=== PATIENT | male | born 1965 | race Caucasian/White ===

== ENCOUNTER 2020-10-26 16:15 | Inpatient (IN) | payer OTHER, SELFPAY ==
--- NOTE | ~2020-10-26 | CT_ITS ---
EXAMINATION: CT HEAD WITHOUT CONTRAST CLINICAL INFORMATION: Altered mental status. COMPARISON: Brain MRI dated 09/09/2008. TECHNIQUE: Contiguous axial imaging was performed from the skull base to vertex without intravenous administration of contrast. This CT examination was performed using dose optimization techniques as appropriate, variously including the following: *Automated exposure control *Adjustment of mA and/or kV according to patient size (this includes techniques or standardized protocols for targeted exams where dose is matched to indication/reason for exam; i.e. extremities or head) *Use of iterative reconstruction technique DLP: 795 mGy-cm FINDINGS: There is no evidence of acute intracranial hemorrhage or territorial infarction. No abnormal mass effect or midline shift is seen. Mcclellan to white matter differentiation is well preserved. No extra-axial fluid collections are identified. The ventricles are normal in size. There is no abnormal attenuation within the brain parenchyma. The osseous structures and soft tissues are normal. The mastoid air cells are well aerated. Small retention cyst in the maxillary sinuses with mild ethmoid sinus mucosal thickening. CT/CT head/brain wo con IMPRESSION: No acute intracranial pathology.
[2020-10-26 16:17] VITALS: BP 176/106; PULSE 100; RESP 14; TEMP 36.4; O2SAT 100; BMI 28.2
--- NOTE | 2020-10-26 17:03 | PC.NURSE ---
1:1 observation intiated at triage for safety
--- NOTE | 2020-10-26 17:16 | PC.NURSE ---
Pt transferred from waiting room to ED Pod , currently completing changeover.
--- NOTE | 2020-10-26 17:21 | PC.NURSE ---
Pt's sister notified this technical publications writer of patient just called her and reported pt has been having insomnia and has been noted to be regularly standing in the dark in the middle of the night staring at nothing. reports pt with bizzare behavior at home.
--- NOTE | 2020-10-26 17:26 | PC.NURSE ---
Pt alert, affect even, reports increased depression but denies SI. States he is familiar w/ the pod- pt briefly oriented to pod and to crisis process. Pt reports he stopped taking medications x2 days- stated he had some somatic discomfort such as dry mouth which triggered the decision.
--- NOTE | 2020-10-26 17:46 | ED.PSYCH ---
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 Over the past several days he has been more withdrawn not participating in any ADLs and has not showed up to work. He has a history of depression states he is on Cymbalta he has been taking this sister is concerned that he has been sitting there and staring and not talking much. Patient states he feels down and depressed and denies any suicidal/homicidal ideation. Denies any illicit substance use. Sister's concerned that there is strong history of bipolar disorder in the family with similar presentation. No specific recent triggers MD complaint: feels depressed Onset (ago): day(s) Duration: constant History of same: Yes Relieving factors: none Exacerbating factors: none Associated psychiatric symptoms: none Treatments prior to arrival: none Related Data Home Medications Medication Instructions Recorded Confirmed Cymbalta 60 10/26/20 losartan 1 tab PO DAILY 10/26/20 10/26/20 pantoprazole 1 tab PO DAILY 10/26/20 10/26/20 Allergies Allergy/AdvReac Type Severity Reaction Status Date / Time No Known Allergies Allergy Verified 10/26/20 16:25 Review of Systems Review of Systems: Constitutional: No Weight loss, No Fever, No Chills, No Night Sweats, No Fatigue, No Malaise ENT/Mouth: No Hearing loss, No Ear Pain, No Nasal Congestion, No Sinus Pain, No Hoarseness, No sore throat, No Rhinorrhea, No Swallowing Difficulty Eyes: No Eye Pain, No Swelling, No Redness, No Foreign Body, No Discharge, No Vision Changes Cardiovascular: No Chest Pain, No SOB, No Dyspnea on Exertion, No Orthopnea, No Edema, No Palpitations Respiratory: No Cough, No Sputum, No Wheezing, No Smoke Exposure, No Dyspnea Gastrointestinal: No Nausea, No Vomiting, No Diarrhea, No Constipation, No abdominal Pain, No Hematochezia, No Melena Genitourinary: No Dysuria, No Urinary Frequency, No Hematuria, No Urinary Incontinence, No Urgency, No Flank Pain, No Urinary Flow Changes, No Hesitancy Musculoskeletal: No joint pain, No Myalgias, No Joint Swelling Skin: No Skin Lesions, No rash Neuro: No Weakness, No Numbness, No Paresthesias, No Loss of Consciousness, No Dizziness, No Headache Psych: No Anxiety/Panic, positive Depression, No SI/HI/AH/VH, No Social Issues Heme/Lymph: No Bruising, No Bleeding,No Lymphadenopathy Endocrine: No Polyuria, No Polydipsia, No Temperature Intolerance Yes all other systems are reviewed and are negative [facility] Past Medical History Medical History (Updated 10/26/20 @ 21:20 by Gigi Ram NP) Appendicitis Depression GERD (gastroesophageal reflux disease) History of nephrectomy, unilateral HTN (hypertension) Social History Social History Advance Directives: No Advance Directives Information Provided: Yes Physical Exam Vital Signs: Vital Signs: Last Vital Signs Temp 97.5 F 10/26/20 16:17 Pulse 100 10/26/20 16:17 Resp 20 10/26/20 18:00 BP 176/106 H 10/26/20 16:17 Pulse Ox 100 10/26/20 16:17 Body Mass Index 28.2 Reviewed Const: General: cooperative; No acute distress or intoxicated appearing Nutritional Appearance: average body habitus Orientation/consciousness: patient oriented x3 HENMT: Head: Yes normal to inspection Ears: hearing grossly normal bilaterally Eyes: General: appearance normal, both eyes and all related structures Visual Thurston: normal visual thurston by confrontation Neck: Neck: Yes normal visual inspection, No positive Brudzinski's sign, No positive Kernig's sign and No tender Thyroid: Thyroid normal Chest: Chest palpation & inspection: normal inspection of the chest Resp: Effort & Inspection: normal respiratory effort Auscultation: clear to auscultation bilaterally Cardio: Jugular venous distension: no JVD Rhythm: regular rhythm Heart sounds: S1 normal heart sound present and S2 normal heart sound present GI: Inspection: Yes normal to inspection Percussion: Yes normal to percussion Auscultation: normal bowel sounds : General: Yes no CVA tenderness Back/Spine/Pelvis: Back: no CVA tenderness Skin: General skin exam: no rashes or lesions noted Neuro: General: patient oriented x3 Extrem: General: Yes normal to inspection Psych: Other: Flat/depressed affect Appearance: well kempt Course Course Course Narrative: Offers no medical complaints. Medical screening labs and care team evaluation. Plan reviewed with patient as well as sister Jovita who is present. Agreeable. Reevaluation(s) Reevaluation #1: Sign-out this time pending care team evaluation there in the room with the patient evaluating him right now. Sign into night team. MDM - Psych Lab Data Result diagrams: 10/26/20 17:55 10/26/20 17:55 Labs: Lab Results 10/26/20 10/26/20 10/26/20 Range/Units 17:55 17:55 17:55 WBC 8.7 (4.8-10.8) X10*3/uL RBC 5.00 (4.60-5.80) X10*6/uL Hgb 14.7 (14.0-18.0) g/dl Hct 44.5 (42-52) % MCV 89.0 (80-98) fL MCH 29.4 (27.0-33.0) pg MCHC 33.0 (31.0-36.0) g/dl RDW 12.1 (11.0-16.0) % Plt Count 265 (160-400) X10*3/uL MPV 10.4 (9.4-12.4) fL Immature Gran % (Auto) 0.3 (0.0-0.4) % Neut % (Auto) 73.7 H (45-73) % Lymph % (Auto) 15.9 L (20-40) % [place] % (Auto) 7.8 (2-11) % Eos % (Auto) 1.6 (0-4) % Baso % (Auto) 0.7 (0-2) % Lymph # (Auto) 1.4 (1.2-4.9) X10*3/uL [place] # (Auto) 0.7 (0.1-1.2) X10*3/uL Eos # (Auto) 0.1 (0.0-0.4) X10*3/uL Baso # (Auto) 0.1 (0.0-0.2) X10*3/uL Abs Immat Gran (auto) 0.03 (0.00-0.03) X10*3/uL Absolute Neuts (auto) 6.4 (2.0-8.3) X10*3/uL Absolute Nucleated RBC 0.000 (0.0-0.012) X10*3/uL Nucleated RBC % (auto) 0.0 (0.0-0.2) /100WBC Sodium 136 (135-145) mmol/L Potassium 5.0 (3.3-5.1) mmol/L Chloride 100 (96-108) mmol/L Carbon Dioxide 27 (22-29) mmol/L Anion Gap 14 (12-20) BUN 16 (9-16) mg/dL Creatinine 1.28 (0.5-1.4) mg/dL Estim Creat Clear Calc 64.5 Estimated GFR 58 Random Glucose 95 (60-115) mg/dL Calcium 9.6 (8.4-10.2) mg/dL Total Bilirubin 0.7 (0.0-1.0) mg/dL AST 17 (5-37) U/L ALT 19 (0-40) U/L Alkaline Phosphatase 63 (39-117) U/L Total Protein 7.9 (6.5-8.0) g/dL Albumin 4.7 (3.5-5.0) g/dL Salicylates < 5.0 L (15-30) mg/dL Acetaminophen < 1 (<30) mcg/mL Ethyl Alcohol < 10 mg/dL COVID-19 (CONG) (Negative) COVID-19 Clin Com 10/26/20 Range/Units 18:08 WBC (4.8-10.8) X10*3/uL RBC (4.60-5.80) X10*6/uL Hgb (14.0-18.0) g/dl Hct (42-52) % MCV (80-98) fL MCH (27.0-33.0) pg MCHC (31.0-36.0) g/dl RDW (11.0-16.0) % Plt Count (160-400) X10*3/uL MPV (9.4-12.4) fL Immature Gran % (Auto) (0.0-0.4) % Neut % (Auto) (45-73) % Lymph % (Auto) (20-40) % [place] % (Auto) (2-11) % Eos % (Auto) (0-4) % Baso % (Auto) (0-2) % Lymph # (Auto) (1.2-4.9) X10*3/uL [place] # (Auto) (0.1-1.2) X10*3/uL Eos # (Auto) (0.0-0.4) X10*3/uL Baso # (Auto) (0.0-0.2) X10*3/uL Abs Immat Gran (auto) (0.00-0.03) X10*3/uL Absolute Neuts (auto) (2.0-8.3) X10*3/uL Absolute Nucleated RBC (0.0-0.012) X10*3/uL Nucleated RBC % (auto) (0.0-0.2) /100WBC Sodium (135-145) mmol/L Potassium (3.3-5.1) mmol/L Chloride (96-108) mmol/L Carbon Dioxide (22-29) mmol/L Anion Gap (12-20) BUN (9-16) mg/dL Creatinine (0.5-1.4) mg/dL Estim Creat Clear Calc Estimated GFR Random Glucose (60-115) mg/dL Calcium (8.4-10.2) mg/dL Total Bilirubin (0.0-1.0) mg/dL AST (5-37) U/L ALT (0-40) U/L Alkaline Phosphatase (39-117) U/L Total Protein (6.5-8.0) g/dL Albumin (3.5-5.0) g/dL Salicylates (15-30) mg/dL Acetaminophen (<30) mcg/mL Ethyl Alcohol mg/dL COVID-19 (CONG) Negative (Negative) COVID-19 Clin Com See Note Discharge Plan Discharge Clinical Impression: Depression Prescriptions: No Action pantoprazole 40 mg tablet,delayed release (DR/EC) 1 tab PO DAILY RF: 0 losartan 100 mg tablet 1 tab PO DAILY RF: 0 Cymbalta 60 RF: 0
[2020-10-26 18:00] VITALS: RESP 20
[2020-10-26 18:03] LABS: MANUAL DIFF FLAG NO
[2020-10-26 18:05] LABS: Basophils Absolute Auto 0.1 X10*3/uL (0.0-0.2); Basophils Percent Auto 0.7 % (0-2); Eosinophils Absolute Auto 0.1 X10*3/uL (0.0-0.4); Eosinophils Percent Auto 1.6 % (0-4); Hematocrit 44.5 % (42-52); Hemoglobin 14.7 g/dl (14.0-18.0); Imm Gran Abs Auto 0.03 X10*3/uL (0.00-0.03); Imm Gran Pct Auto 0.3 % (0.0-0.4); Lymphocytes Absolute Auto 1.4 X10*3/uL (1.2-4.9); Lymphocytes Percent Auto 15.9 % (20-40); Mean Corpuscular Hemoglobin 29.4 pg (27.0-33.0); Mean Platelet Volume 10.4 fL (9.4-12.4); Monocytes Absolute Auto 0.7 X10*3/uL (0.1-1.2); Monocytes Percent Auto 7.8 % (2-11); Neutrophils Absolute Auto 6.4 X10*3/uL (2.0-8.3); Neutrophils Percent Auto 73.7 % (45-73); Platelet Count 265 X10*3/uL (160-400); Red Cell Distribution Width 12.1 % (11.0-16.0); White Blood Count 8.7 X10*3/uL (4.8-10.8)
--- NOTE | 2020-10-26 18:11 | PC.NURSE ---
Sister in w/ pt; care team called to notify of pt arrival.
[2020-10-26 18:29] LABS: COVID-19 Test Negative (Negative)
[2020-10-26 18:35] LABS: Ethanol < 10 mg/dL
[2020-10-26 18:37] LABS: Acetaminophen LAB < 1 mcg/mL (<30); Alanine Aminotransferase 19 U/L (0-40); Albumin Level 4.7 g/dL (3.5-5.0); Alkaline Phosphatase 63 U/L (39-117); Anion Gap 14 (12-20); Aspartate Amino Transferase 17 U/L (5-37); Bilirubin Total 0.7 mg/dL (0.0-1.0); Blood Urea Nitrogen 16 mg/dL (9-16); Calcium 9.6 mg/dL (8.4-10.2); Carbon Dioxide 27 mmol/L (22-29); Chloride 100 mmol/L (96-108); Creatinine Clr Calc Pharmacy 64.5; Estimated Glomerular Filt Rate 58; Glucose Random 95 mg/dL (60-115); Salicylate < 5.0 mg/dL (15-30); Sodium 136 mmol/L (135-145); Total Protein 7.9 g/dL (6.5-8.0)
--- NOTE | 2020-10-26 19:20 | PC.NURSE ---
Report received. PT is sitting in his room, visiting with his sister. Calm and cooperative. PT is waiting to be seen by CARE team.
[2020-10-26 21:48] VITALS: BP 166/116; PULSE 102
--- NOTE | 2020-10-26 22:17 | PC.NURSE ---
This nurse requested that PT meds be ordered by provider (med rec was completed by another nurse prior to the start of this nurse's shift). Prior to removing ordered meds, this nurse went to confirm the meds with the PT and discovered discrepancies with the meds the PT normally takes at home. This nurse called [facility] pharmacy to confirm meds but pharmacists stated that some meds were not picked up at [facility] and others were . Provider made aware and stopped the med order. This nurse then called the PT's at home to confirm the labels on the home medications. The verified all of the meds that the PT had stated, but one of the meds (losartan) was beyond the length of the prescription on the bottle and another (pantoprazole) was delivered through the mail. Provider made aware. Recommendation for pharmacy consult to be done for this PT to determine correct meds.
--- NOTE | 2020-10-26 22:51 | PC.NURSE ---
pt refused p.o. ativan, encouraged pt to take to aid in sleep. pt has a delayed verbal response. pt standing against wall, would not walk over to me.
--- NOTE | 2020-10-27 01:11 | PC.NURSE ---
This nurse spoke with the PT's daughter on the phone after she spoke to her father. The daughter stated that her father's behavior and speech is very uncharacteristic. Daughter stated, My father is usually very talkative and outgoing . PT is currently sitting on the couch in the common area, where he has been sitting quietly for over an hour. PT is refusing medications and CT scan. Provider came to speak with the PT, but the PT was unable to respond to any questions or requests.
[2020-10-27 01:25] VITALS: BP 155/100; PULSE 105; RESP 18; TEMP 36.2; O2SAT 99
--- NOTE | 2020-10-27 01:45 | PC.NURSE ---
Thelma Oneal (daughter) - [phone]
--- NOTE | 2020-10-27 03:11 | PC.NURSE ---
This nurse called the PT's daughter in order to persuade the PT to have CT scan completed. PT eventually agreed to the scan, was assisted into a wheelchair x2 nurses, and transported to the CT scan room. Once assisted to the exam table x2 nurses, the PT laid down flat with direction. As everyone was walking out of the room, the PT set up on the table and said, No . PT was instructed on the procedure multiple times but continued to refuse to lay flat during the scan. CT scan was not completed. PT was then brought back to pod where he refused to be brought into his room in the wheelchair. PT needed to be assisted out of the wheelchair by this nurse and two techs in the pod. PT is currently sitting up straight on the couch in the common area.
[2020-10-27 03:59] VITALS: BP 149/95; PULSE 101; RESP 16; O2SAT 100
--- NOTE | 2020-10-27 07:00 | PC.NURSE ---
PT has not slept the entire night. Sitting on the couch in the common area staring at the screen for the past 5 hours. PT is not responding to questions.
--- NOTE | 2020-10-27 07:09 | PC.NURSE ---
Report received. PT currently sitting in common area, daughter in to visit. PT offers minimal verbal responses, nods his head yes when asked if he is ok. PT continues to decline CT scan.
--- NOTE | 2020-10-27 07:47 | PC.NURSE ---
PT initially agreed to CT scan, needed multiple staff assistance to sit in wheel chair. Once in CT scan PT declined, continues to be non-verbal with staff. Provider aware. Provider in to speak with PT, pt continues to not respond, shakes head occasionally. PT moved to room 6, report given to RN.
[2020-10-27 07:49] VITALS: BP 195/98; PULSE 116; RESP 20; TEMP 36.9; O2SAT 100
[2020-10-27] MEDS: LORazepam 2 MG/ML VIAL 1 MG IM (08:00)
--- NOTE | 2020-10-27 08:00 | PC.NURSE ---
pt came to ED 6 from behavioral health pod after displaying bizarre behavior at home for 2 days. upon initial assessment, pt appears catatonic and is unable to provide name, date of or his location. arousable to verbal stimuli and makes some eye contact when prompted but does not speak. visible sweat on forehead. respiratory effort is unlabored and rate is even. pt does not voluntarily move his arms to assist this nurse taking vitals. when attempting to medicate patient, he becomes agitated and moves away from needle requiring his daughter and a tech to hold his arms for safe medication administration. pt unable to state if hes in pain at this time, no grimacing noted. daughter at bedside. aware.
[2020-10-27] MEDS: OLANZapine 10 MG VIAL IM (08:14)
--- NOTE | 2020-10-27 08:55 | PC.NURSE ---
After receiving 1mg IM Ativan and 10mg IM Zyprexa, pt is now alert and oriented x3, able to state name, , location and month. pt is now calm and cooperative. eye contact and verbal response is now appropriate for setting. pt able to speak in full sentences and make needs known. pt requesting water for dry mouth at this time and is able to drink water without issues. lung sounds clear bilaterally in all thurston, respirations even and unlabored. heart rate and sounds normal. pt now moving arms voluntarily and assists nurse when having vitals taken. pt denies pain at this time and states he is feeling better after receiving medications. daughter still at bedside. call [place] [facility] in reach. aware.
[2020-10-27 08:58] VITALS: BP 146/94; PULSE 107; RESP 16; O2SAT 100
--- NOTE | 2020-10-27 09:37 | PC.NURSE ---
0915 clonazepam held because pt was medicated earlier with 1mg IM lorazepam. mlp (Mary Anne) aware
[2020-10-27] MEDS: DULoxetine HCl 60 MG CAPSULE.DR PO (09:41)
[2020-10-27 10:50] VITALS: BP 168/82; PULSE 100; RESP 16; O2SAT 99
[2020-10-27 11:04] LABS: Amphetamine Screen Urine Not Detected (Not Detect); Barbiturates, Urine Not Detected (Not Detect); Benzodiazepines Screen Urine Not Detected (Not Detect); Cannabinoid Screen Urine Not Detected (Not Detect); Cocaine Screen Urine Not Detected (Not Detect); Opiate Screen Urine Not Detected (Not Detect); Phencyclidine Screen Urine Not Detected (Not Detect)
--- NOTE | 2020-10-27 11:59 | PC.NURSE ---
Report received. PT ambulated to pod with steady gait, calm and cooperative, pt asking about lunch and plan of care. Plan of care explained.
--- NOTE | 2020-10-27 16:36 | PC.NURSE ---
Che Durant (Pt's sister) [phone]
[2020-10-27 18:02] VITALS: BP 118/67; PULSE 114; RESP 20; TEMP 36.2; O2SAT 99
--- NOTE | 2020-10-27 20:08 | PC.NURSE ---
Report received. PT is resting in bed. Just finished eating all of his dinner. PT is inpatient bed search.
[2020-10-27] MEDS: clonazePAM 0.5 MG TABLET PO (21:19)
--- NOTE | 2020-10-27 21:58 | P.CNPS_ITS ---
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 Over the past several days he has been more withdrawn not p articipating in any ADLs and has not showed up to work. He has a history of depression states he is on Cymbalta he has been taking this sister is concerned that he has been sitting there and staring and not talking much. Patient states he feels down and depressed and denies any suicidal/homicidal ideation. Denies any illicit substance use. Sister's concerned that there is strong history of bipolar disorder in the family with similar presentation. Individual reports that he has been under a lot of stress over the time of the pandemic and now with schools starting to be in-person. He has noticed that he had been more depressed and anxious. He has been suffering from depression for many years and had been stable on duloxetine, prescribed by his PCP. He had the second of his COVID vaccine and subsequently felt very weird, mildly confused and congested. He also forgot to take his cymbalta. Upon presentation to the ER he was confused and agitated. He was entirely uncooperative and needed im medication. Subsequent to this he has been clearing and when interviewed today was clear and entirely cooperative. He was able to give a good account of himself. He denied SI Past Psychiatric History: No IP admissions Treated by his PCP for depression Medical Evaluation Reviewed: Yes Personal & Social History: with a family. Teacher by profession Review of Systems Review of Systems Yes all other systems are reviewed and are negative [facility] Medical History Appendicitis Depression GERD (gastroesophageal reflux disease) History of nephrectomy, unilateral HTN (hypertension) Substance History: denies Diagnostics Vital Signs (24Hr): Vital Signs - 24 hr 10/27/20 01:25 10/27/20 03:59 10/27/20 07:49 Temperature 97.2 F 98.4 F Pulse Rate 105 H 101 H 116 H Respiratory Rate 18 16 20 Blood Pressure 155/100 H 149/95 H 195/98 H Pulse Oximetry 99 100 100 10/27/20 08:58 10/27/20 10:50 10/27/20 18:02 Temperature 97.1 F Pulse Rate 107 H 100 114 H Respiratory Rate 16 16 20 Blood Pressure 146/94 H 168/82 H 118/67 Pulse Oximetry 100 99 99 Body Mass Index 28.2 Labs Results: 10/26/20 17:55 10/26/20 17:55 Labs: Laboratory Results - last 48 hr 10/26/20 10/26/20 10/26/20 17:55 17:55 17:55 WBC 8.7 RBC 5.00 Hgb 14.7 Hct 44.5 MCV 89.0 MCH 29.4 MCHC 33.0 RDW 12.1 Plt Count 265 MPV 10.4 Immature Gran % (Auto) 0.3 Neut % (Auto) 73.7 H Lymph % (Auto) 15.9 L [place] % (Auto) 7.8 Eos % (Auto) 1.6 Baso % (Auto) 0.7 Lymph # (Auto) 1.4 [place] # (Auto) 0.7 Eos # (Auto) 0.1 Baso # (Auto) 0.1 Abs Immat Gran (auto) 0.03 Absolute Neuts (auto) 6.4 Absolute Nucleated RBC 0.000 Nucleated RBC % (auto) 0.0 Sodium 136 Potassium 5.0 Chloride 100 Carbon Dioxide 27 Anion Gap 14 BUN 16 Creatinine 1.28 Estim Creat Clear Calc 64.5 Estimated GFR 58 Random Glucose 95 Calcium 9.6 Total Bilirubin 0.7 AST 17 ALT 19 Alkaline Phosphatase 63 Total Protein 7.9 Albumin 4.7 Salicylates < 5.0 L Urine Opiates Screen Acetaminophen < 1 Ur Barbiturates Screen Ur Phencyclidine Scrn Ur Amphetamines Screen U Benzodiazepines Scrn Urine Cocaine Screen U Marijuana (THC) Screen Ethyl Alcohol < 10 COVID-19 (CONG) COVID-19 Clin Com 10/26/20 10/27/20 18:08 10:31 WBC RBC Hgb Hct MCV MCH MCHC RDW Plt Count MPV Immature Gran % (Auto) Neut % (Auto) Lymph % (Auto) [place] % (Auto) Eos % (Auto) Baso % (Auto) Lymph # (Auto) [place] # (Auto) Eos # (Auto) Baso # (Auto) Abs Immat Gran (auto) Absolute Neuts (auto) Absolute Nucleated RBC Nucleated RBC % (auto) Sodium Potassium Chloride Carbon Dioxide Anion Gap BUN Creatinine Estim Creat Clear Calc Estimated GFR Random Glucose Calcium Total Bilirubin AST ALT Alkaline Phosphatase Total Protein Albumin Salicylates Urine Opiates Screen Not Detected Acetaminophen Ur Barbiturates Screen Not Detected Ur Phencyclidine Scrn Not Detected Ur Amphetamines Screen Not Detected U Benzodiazepines Scrn Not Detected Urine Cocaine Screen Not Detected U Marijuana (THC) Screen Not Detected Ethyl Alcohol COVID-19 (CONG) Negative COVID-19 Clin Com See Note Imaging Radiology Impressions: ITS Impressions Head CT 10/27/20 00:30 IMPRESSION: No acute intracranial pathology. Mental Status Exam Mental Status Exam Patient Appearance: Well Grooomed Patient Orientation: Person, Place, Time and Situation Level of Consciousness: Awake Patient Behavior: Appropriate Mood Description: Calm Affect Description: Calm Ability to Follow Directions: Excellent Speech Pattern: Clear Hallucinations: None Delusions: Not Present Thought Process: Intact Thought Content: positive for Intact, positive for Circumstantial, negative for Suicidal Ideation and negative for Homicidal Ideation Depressive Symptoms: Increased Anxiety, Diff. Making Decisions and Increased Fatigue Judgement: Good Medications Medications Current Medications Generic Name Dose Route Start Last Admin Trade Name Freq PRN Reason Stop Dose Admin Clonazepam 0.5 mg 10/27/20 09:15 10/27/20 21:19 Clonazepam 0.5 Mg Tablet PO 0.5 mg BID CLAUDY Administration Duloxetine HCl 90 mg 10/28/20 09:00 Duloxetine Hcl 30 Mg Capsule. PO DAILY CLAUDY Allergies Allergies Allergy/AdvReac Type Severity Reaction Status Date / Time No Known Allergies Allergy Verified 10/26/20 16:25 Assessment & Plan Assessment & Plan (1) Depression: Qualifiers: Depression Type: major depressive disorder Major depression recurrence: recurrent Active/Remission status: currently active Major depression episode severity: moderate Qualified Code(s): F33.1 - Major depressive disorder, recurrent, moderate Status: Acute Code(s): F32.9 - Major depressive disorder, single episode, unspecified Recommendations: Acute agitation which may be a result of COVID vaccination, cymbalta withdrawal on top of extreme life stresses. He had been more depressed in recent weeks before this happened. He might benefit from an increase in cymbalta to address breakthrough depression. He did not appear to be at acute risk or psychotic at the time of this evaluation Greater than 50% of the session was spent on counseling and/or coordination of care Patient educated on: diagnosis Informed Consent: understands
[2020-10-28 06:00] VITALS: BP 168/78; PULSE 114; RESP 20; TEMP 36.3; O2SAT 99
--- NOTE | 2020-10-28 07:47 | PC.NURSE ---
Pt report received from Ronn AMAYA, pt resting quietly at this time. Bedsearch cont.
[2020-10-28] MEDS: DULoxetine HCl 30 MG CAPSULE.DR 90 MG PO (08:08)
[2020-10-28] MEDS: clonazePAM 0.5 MG TABLET PO ×2 (08:08→21:13)
[2020-10-28 09:49] VITALS: BP 119/89; PULSE 86; RESP 16; TEMP 37; O2SAT 100
--- NOTE | 2020-10-28 15:03 | PC.NURSE ---
Report recieved. PT currently sitting in his room, denies complaints, calm and cooperative. PT is inpatient bedsearch.
[2020-10-28 17:41] VITALS: BP 128/93; PULSE 93; RESP 18; TEMP 36.2; O2SAT 100
--- NOTE | 2020-10-28 19:45 | PC.NURSE ---
Report received. PT is talking on the phone with his sister. Calm and cooperative. PT is inpatient bed search.
[2020-10-29 06:14] VITALS: BP 149/82; PULSE 100; RESP 16; TEMP 36.7; O2SAT 96
--- NOTE | 2020-10-29 07:34 | PC.NURSE ---
Report received from MONIQUE Brody. Pt resting, resp unlabored.
--- NOTE | 2020-10-29 09:27 | PC.NURSE ---
Pt evaluated by psychiatry
[2020-10-29 09:36] VITALS: BP 143/102; PULSE 95; TEMP 36.4; O2SAT 98
[2020-10-29] MEDS: clonazePAM 0.5 MG TABLET PO ×2 (09:37→20:33)
[2020-10-29] MEDS: DULoxetine HCl 30 MG CAPSULE.DR 90 MG PO (09:37)
--- NOTE | 2020-10-29 09:44 | P.CNPS_ITS ---
History of Present Illness Date of Service: 10/29/20 Chief Complaint: Depression Reason for Consult: Depression, rule out bipolar disorder Requesting physician: Gigi Ram Discussed with referring provider: Yes (POD team discussion) Sources of Information: patient interviewed and chart reviewed HPI Narrative: Pt seen in POD. Seen by Dr. Scott on 10/28/20. Reports depressive symptoms, difficulty talking, awaiting admission. Denies longstanding psychiatric history. Reports duloxetine initiated by PCP for sx of depression, anxiety. Pt appears to be thought blocking-difficulty expressing himself, stops speaking mid sentence. CAT Head on 10/27/20 is negative. Past Psychiatric History: No IP admissions Treated by his PCP for depression Medical Evaluation Reviewed: Yes Review of Systems Review of Systems Yes all other systems are reviewed and are negative (denies) Gastrointestinal: Reports other (hx reflux) [facility] Medical History Appendicitis Depression GERD (gastroesophageal reflux disease) History of nephrectomy, unilateral HTN (hypertension) Diagnostics Vital Signs (24Hr): Vital Signs - 24 hr 10/28/20 09:49 10/28/20 17:41 10/29/20 06:14 Temperature 98.6 F 97.1 F 98.0 F Pulse Rate 86 93 100 Respiratory Rate 16 18 16 Blood Pressure 119/89 128/93 H 149/82 H Pulse Oximetry 100 100 96 10/29/20 09:36 Temperature 97.6 F Pulse Rate 95 Respiratory Rate Blood Pressure 143/102 H Pulse Oximetry 98 Body Mass Index 28.2 Labs Results: 10/26/20 17:55 10/26/20 17:55 Labs: Laboratory Results - last 48 hr 10/27/20 10:31 Urine Opiates Screen Not Detected Ur Barbiturates Screen Not Detected Ur Phencyclidine Scrn Not Detected Ur Amphetamines Screen Not Detected U Benzodiazepines Scrn Not Detected Urine Cocaine Screen Not Detected U Marijuana (THC) Screen Not Detected Imaging Radiology Impressions: ITS Impressions Head CT 10/27/20 00:30 IMPRESSION: No acute intracranial pathology. Mental Status Exam Mental Status Exam Patient Appearance: Appropriate Patient Orientation: Person and Place Level of Consciousness: Awake and Alert Patient Behavior: Appropriate, Anxious and Good Eye Contact Mood Description: Anxious Affect Description: Anxious Patient Cognition Impaired: Yes Ability to Follow Directions: Fair Speech Pattern: Impoverished, Difficulty Finding Words, Spontaneous Speech, Soft-Spoken, Delayed, Poor Articulation and Long Pauses Memory Description: Intact Hallucinations: None Thought Process: Distracted and Rumination Thought Content: positive for Fielding, positive for Perseveration, positive for Preoccupation, positive for Thought Blocking and positive for Slowed Thinking Depressive Symptoms: Increased Anxiety Judgement: Poor Medications Medications Current Medications Generic Name Dose Route Start Last Admin Trade Name Freq PRN Reason Stop Dose Admin Clonazepam 0.5 mg 10/27/20 09:15 10/29/20 09:37 Clonazepam 0.5 Mg Tablet PO 0.5 mg BID CLAUDY Administration Duloxetine HCl 90 mg 10/28/20 09:00 10/29/20 09:37 Duloxetine Hcl 30 Mg Capsule.Dr PO 90 mg DAILY CLAUDY Administration Allergies Allergies Allergy/AdvReac Type Severity Reaction Status Date / Time No Known Allergies Allergy Verified 10/26/20 16:25 Assessment & Plan Assessment & Plan (1) Depression: Qualifiers: Active/Remission status: currently active Depression Type: major depressive disorder Major depression episode severity: moderate Major depression recurrence: recurrent Qualified Code(s): F33.1 - Major depressive disorder, recurrent, moderate Status: Acute Code(s): F32.9 - Major depressive disorder, single episode, unspecified Recommendations: -Add low dose Olanzapine 2.5 mg bid and 5 mg bid prn to current regime at pt appears to have psychotic symptoms within his depression, thought blocking, which is inhibiting his communication. -TSH, FT4 -Agree with decision for in pt admission. Greater than 50% of the session was spent on counseling and/or coordination of care
[2020-10-29] MEDS: OLANZapine 2.5 MG TABLET PO ×2 (10:43→20:33)
[2020-10-29 11:06] VITALS: BP 145/97; PULSE 107; RESP 20; TEMP 36.3; O2SAT 98
[2020-10-29 11:55] LABS: TSH reflex Free T4 1.33 uIU/mL (0.32-4.0)
--- NOTE | 2020-10-29 12:10 | PC.NURSE ---
Late entry: Pt accepted zyprexa as ordered, educated re: dosage and function. Pt currently resting.
--- NOTE | 2020-10-29 13:34 | PC.NURSE ---
Pt appears increasingly engaged, able to carry a conversion w/ staff without hesitation.
[2020-10-29 14:00] VITALS: RESP 20
--- NOTE | 2020-10-29 15:26 | PC.NURSE ---
Sister in to visit w/ pt. Pt gave permission to speak w/ pt. Pt pleasant, increasingly engaging in conversation, appears and is anxious.
[2020-10-29 15:51] VITALS: BP 120/69; PULSE 97; RESP 20; TEMP 36.4; O2SAT 99
--- NOTE | 2020-10-29 17:17 | PC.NURSE ---
Daughter in to visit pt.
--- NOTE | 2020-10-29 18:29 | PC.NURSE ---
CARE team in w/ pt. Daughter Thelma in to visit pt- will call back tomorrow, would like to be added to health care proxy.
--- NOTE | 2020-10-29 19:59 | PC.NURSE ---
Patient in bed lying, resting quietly, no distress reported, will continue to monitor.
[2020-10-30 06:31] VITALS: BP 127/79; PULSE 96; RESP 17; TEMP 36.7; O2SAT 98
--- NOTE | 2020-10-30 07:18 | PC.NURSE ---
Report received from MONIQUE Cooley. Pt awake, affect constricted; pt states he slept last night, and is planning to rest again. No concerns reported.
[2020-10-30 09:13] VITALS: BP 138/93; PULSE 106; RESP 18; TEMP 36.6; O2SAT 97
[2020-10-30] MEDS: OLANZapine 2.5 MG TABLET PO ×2 (09:35→21:40)
[2020-10-30] MEDS: clonazePAM 0.5 MG TABLET PO ×2 (09:35→21:40)
[2020-10-30] MEDS: Omeprazole 40 MG CAPSULE.DR PO (09:35)
[2020-10-30 09:36] VITALS: BP 138/93; PULSE 106
[2020-10-30] MEDS: Losartan Potassium 50 MG TABLET PO (09:36)
--- NOTE | 2020-10-30 11:09 | PC.NURSE ---
Pt Pt resting in bed, easily awakened. Pt appears more reluctant to accept medications this morning. Reviewed each medication w/ pt, continued education re: medications. Pt able to accept them.
[2020-10-30] MEDS: DULoxetine HCl 30 MG CAPSULE.DR 90 MG PO (12:02)
[2020-10-30 14:00] VITALS: RESP 18
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
--- NOTE | 2020-10-30 16:49 | PC.NURSE ---
Report given to MONIQUE Meadows. Pt to be transferred to , room 506-2.
[2020-10-30 17:25] VITALS: BP 152/96; PULSE 104; RESP 16; O2SAT 99
[2020-10-30 18:00] VITALS: BP 138/84; PULSE 104; RESP 20; TEMP 36.1; O2SAT 99
--- NOTE | 2020-10-30 18:29 | PC.NURSE ---
pt in room, eating dinner, denies any concerns at this time, aware that he will be transferred to .
--- NOTE | 2020-10-30 20:38 | PC.ADMIT ---
Pt is a 54 year old male who [place] [facility] by his sister who drove him here. Upon arrival to the ED pt was unable to respond, was difficult for him to answer questions, observed to be thought blocking and internally preoccupied. 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 Pt sister states he has been off from his baseline for the past two weeks, she states he has been dissociating and staring at the wall for hours. Pt presents to at approx 1930 on a CV status. Pt is Covid negative. UTOX negative, and labs within normal limits. Pt denies current services in the community. Pt denies history of trauma. Pt's sister states that their parnts dying has been very difficult for him and he is worried about her on dialysis and is scared for her. Pt did give his sister a kidney years back. Pt denies SI/HI, AH/VH on admission. Pt contracts for safety. Dr. Jaelyn Obando called for orders and notified of admission. Pt on 5 min checks with unlocked bathroom. Pt was cooperative with the admission and nursing assessment. Pt presents with flat affect and depressed mood, anxious, speech slowed and was hesitant about signing releases, which he decided against. Pt did sign all other admission paperwork. Medication has been verified by the ED. Pt denies pain or discomfort at this time.
[2020-10-31 06:02] VITALS: BP 140/82; PULSE 88; RESP 18; TEMP 36.1; O2SAT 97
[2020-10-31] MEDS: DULoxetine HCl 30 MG CAPSULE.DR 90 MG PO (08:33)
[2020-10-31 08:34] VITALS: BP 145/94; PULSE 92
[2020-10-31] MEDS: Losartan Potassium 50 MG TABLET PO (08:34)
[2020-10-31] MEDS: Omeprazole 40 MG CAPSULE.DR PO (08:34)
[2020-10-31] MEDS: OLANZapine 2.5 MG TABLET PO (08:34)
[2020-10-31] MEDS: clonazePAM 0.5 MG TABLET PO ×2 (08:34→20:57)
[2020-10-31 08:47] LABS: Cholesterol 199 mg/dL; HDL Cholesterol 33 mg/dL; LDL Cholesterol Calculated 127 mg/dl; Triglycerides 196 mg/dL
[2020-10-31 08:52] LABS: Estimated Average Glucose 103 mg/dL; Hemoglobin A1c % 5.2 %
[2020-10-31 16:34] VITALS: BP 130/76; PULSE 90; RESP 18; TEMP 36.2; O2SAT 98
[2020-10-31] MEDS: OLANZapine 5 MG TABLET PO (20:57)
[2020-11-01 06:05] VITALS: BP 110/57; PULSE 86; RESP 18; TEMP 36.6; O2SAT 96
[2020-11-01 07:00] VITALS: BMI 28.5
[2020-11-01 08:20] VITALS: BP 157/101; PULSE 103; RESP 14
[2020-11-01 09:12] VITALS: BP 110/57
[2020-11-01] MEDS: Omeprazole 40 MG CAPSULE.DR PO (09:12)
[2020-11-01] MEDS: Losartan Potassium 50 MG TABLET PO (09:12)
[2020-11-01] MEDS: OLANZapine 5 MG TABLET PO ×2 (09:12→20:18)
[2020-11-01] MEDS: clonazePAM 0.5 MG TABLET PO ×2 (09:12→20:18)
[2020-11-01] MEDS: DULoxetine HCl 30 MG CAPSULE.DR 90 MG PO (09:12)
--- NOTE | 2020-11-01 09:38 | HO.PSYADMNOT ---
HPI Chief Complaint: Severe depression Sources of Information: patient interviewed, chart reviewed and crisis/core team assessment reviewed HPI Subjective Notes: Conditional Voluntary Narrative: Mr. Oneal is a 54 year-old male with hx of MDD. No prior inpatient psychiatric admission. Per crisis report, pt was brought to [facility] ED on 10/28/2020 by and sister as pt has been presenting as withdrawn, minimally verbal, blank stare, not sleeping and stopped going to work 4 days ago. In the ED he was noted to be thought blocking, minimally interactive/verbal. He was started on low dose of Olanzapine in ED. His utox was negative. CT scan did not show acute pathology. On the unit, Mr. Oneal appears slightly more verbal. However, he is not able to provide much details about events leading to this admission. He reports he was not feeling well. When asked if physically or emotionally, he states both. When asked to elaborate, he does not provide much details. He denies VH/AH. He reports poor sleep. He describes mood as depressed. He denies SI/HI. He denies physical pain or unable to describe in what way he did not feel physically well. He does state that he has been feeling tired. Collateral information was gathered from the , who reports pt has been under a lot of stress at work including possibility of losing his job. also reports that they have significant financial stressors at this time. He does not think that he was hearing things that other couldn't hear or seeing things. She does report that he spend most of day staring at wall with limited verbalization. She reports he had poor appetite and poor sleep. She reports she has never seen him like this. Past Psychiatric History: No IP admissions Treated by his PCP for depression Suicide attempts: none Past trials: cymbalta and clonazepam Medical Evaluation Reviewed: Yes [facility] Medical History Appendicitis Depression GERD (gastroesophageal reflux disease) History of nephrectomy, unilateral HTN (hypertension) Family History: sister with depression Social History: pt has two daugther. Second marriage, works as social media job titles for [employer]. Substance History: long hx of cocaine, but not active. Trauma History: none Diagnostics Vital Signs (24Hr): Vital Signs - 24 hr 10/31/20 16:34 11/01/20 06:05 11/01/20 09:12 Temperature 97.1 F 97.8 F Pulse Rate 90 86 Respiratory Rate 18 18 Blood Pressure 130/76 110/57 L 110/57 L Pulse Oximetry 98 96 Body Mass Index 28.2 Labs Results: 10/26/20 17:55 10/26/20 17:55 Labs: Laboratory Results - last 48 hr 10/31/20 10/31/20 07:47 07:47 Estimat Average Glucose 103 Hemoglobin A1c % 5.2 Triglycerides 196 Cholesterol 199 LDL Cholesterol, Calc 127 HDL Cholesterol 33 Imaging Radiology Impressions: ITS Impressions Head CT 10/27/20 00:30 IMPRESSION: No acute intracranial pathology. Meds/Allergies Meds Home Medications Acetaminophen (Acetaminophen 325 Mg Tablet) 650 mg PO Q6H PRN PRN Reason: Headache/Pain Mild Scale (1-3) Al Hydroxide/Mg Hydroxide (Magnesium Hydrox/Alum Hydrox 30 Ml Oral.Susp) 30 ml PO Q6H PRN PRN Reason: Heartburn/Nausea Clonazepam (Clonazepam 0.5 Mg Tablet) 0.5 mg PO BID [facility] Last Admin: 11/01/20 09:12 Dose: 0.5 mg Documented by: Duloxetine HCl (Duloxetine Hcl 30 Mg Capsule.) 90 mg PO DAILY [facility] Last Admin: 11/01/20 09:12 Dose: 90 mg Documented by: Losartan Potassium (Losartan Potassium 50 Mg Tablet) 50 mg PO DAILY [facility]; Protocol Last Admin: 11/01/20 09:12 Dose: 50 mg Documented by: Magnesium Hydroxide (Milk Of Magnesia 30 Ml Oral.Susp) 30 ml PO DAILY PRN PRN Reason: Constipation Olanzapine (Olanzapine 5 Mg Tablet) 5 mg PO BID [facility] Last Admin: 11/01/20 09:12 Dose: 5 mg Documented by: Olanzapine (Olanzapine 5 Mg Tablet) 5 mg PO Q6H PRN PRN Reason: Psychosis/agitation Omeprazole (Omeprazole 40 Mg Capsule.) 40 mg PO DAILY [facility] Last Admin: 11/01/20 09:12 Dose: 40 mg Documented by: Trazodone HCl (Trazodone Hcl 50 Mg Tablet) 50 mg PO BEDTIME PRN PRN Reason: Insomnia Allergies Allergies Allergy/AdvReac Type Severity Reaction Status Date / Time No Known Allergies Allergy Verified 10/26/20 16:25 Mental Status Exam Mental Status Exam Narrative: Appearance: wearing hospital gown, poor hygiene, in NAD Behavior: calm, cooperative Psychomotor: retardation noted Speech: clear, slowed rate/rhythm/volume, minimally spontaneous TP: linear TC: no signs of psychosis, feeling tired Mood: tired Affect:constricted SI:denies HI:denies AH/VH:denies Delusions:no overt delusional content reported Insight/judgment:poor x 2. Memory/cog: alert, impaired secondary to psych symptoms. Assessment & Plan Assessment & Plan (1) MDD (major depressive disorder), recurrent, severe, with psychosis: Status: Acute Code(s): F33.3 - Major depressive disorder, recurrent, severe with psychotic symptoms Assessment and Plan: continue cymbalta increase olanzapine to 5mg po BID. continue clonazepam Reason for continued inpatient stay Substantial Risk for: inability to function
--- NOTE | 2020-11-01 14:10 | HO.PSYCHPN ---
Subjective Subjective Date of Service: 11/01/20 Reason For Visit: Severe depression Subjective Notes: Conditional Voluntary Interim History: Pt appears with brighter affect. Pt reported feeling very depressed, hopeless and lack of sleep. He also reported poor appetite which it is improving. He denies SI/HI. he also denies VH/AH. He reports sleeping better with medications. He does not appear with psychotic features at this time. Medication Compliance: Yes Side effects from medications: No Attending Groups: No Review of Systems Review of Systems Constitutional: No Weight loss, No Fever, No Chills, No Night Sweats, No Fatigue, No Malaise ENT/Mouth: No Hearing loss, No Ear Pain, No Nasal Congestion, No Sinus Pain, No Hoarseness, No sore throat, No Rhinorrhea, No Swallowing Difficulty Eyes: No Eye Pain, No Swelling, No Redness, No Foreign Body, No Discharge, No Vision Changes Cardiovascular: No Chest Pain, No SOB, No Dyspnea on Exertion, No Orthopnea, No Edema, No Palpitations Respiratory: No Cough, No Sputum, No Wheezing, No Smoke Exposure, No Dyspnea Gastrointestinal: No Nausea, No Vomiting, No Diarrhea, No Constipation, No abdominal Pain, No Hematochezia, No Melena Genitourinary: No Dysuria, No Urinary Frequency, No Hematuria, No Urinary Incontinence, No Urgency, No Flank Pain, No Urinary Flow Changes, No Hesitancy Musculoskeletal: No joint pain, No Myalgias, No Joint Swelling Skin: No Skin Lesions, No rash Neuro: No Weakness, No Numbness, No Paresthesias, No Loss of Consciousness, No Dizziness, No Headache Psych: No Anxiety/Panic, positive Depression, No SI/HI/AH/VH, No Social Issues Heme/Lymph: No Bruising, No Bleeding,No Lymphadenopathy Endocrine: No Polyuria, No Polydipsia, No Temperature Intolerance Yes all other systems are reviewed and are negative Gastrointestinal: Reports other (hx reflux) Mental Status Exam Mental Status Exam Narrative: Appearance: wearing hospital gown, poor hygiene, in NAD Behavior: calm, cooperative Psychomotor: retardation noted Speech: clear, slowed rate/rhythm/volume, minimally spontaneous TP: linear TC: no signs of psychosis, feeling tired Mood: tired Affect:constricted SI:denies HI:denies AH/VH:denies Delusions:no overt delusional content reported Insight/judgment:poor x 2. Memory/cog: alert, impaired secondary to psych symptoms. Patient Appearance: Appropriate Patient Orientation: Person and Place Level of Consciousness: Awake and Alert Patient Behavior: Appropriate, Anxious and Good Eye Contact Mood Description: Anxious Affect Description: Anxious Patient Cognition Impaired: Yes Ability to Follow Directions: Fair Speech Pattern: Impoverished, Difficulty Finding Words, Spontaneous Speech, Soft-Spoken, Delayed, Poor Articulation and Long Pauses Memory Description: Intact Diagnostics Vital Signs (24Hr): Vital Signs - 24 hr 10/31/20 16:34 11/01/20 06:05 11/01/20 09:12 Temperature 97.1 F 97.8 F Pulse Rate 90 86 Respiratory Rate 18 18 Blood Pressure 130/76 110/57 L 110/57 L Pulse Oximetry 98 96 Body Mass Index 28.5 Labs Results: 10/26/20 17:55 10/26/20 17:55 Labs: Laboratory Results - last 48 hr 10/31/20 10/31/20 07:47 07:47 Estimat Average Glucose 103 Hemoglobin A1c % 5.2 Triglycerides 196 Cholesterol 199 LDL Cholesterol, Calc 127 HDL Cholesterol 33 Imaging Radiology Impressions: ITS Impressions Head CT 10/27/20 00:30 IMPRESSION: No acute intracranial pathology. Medications Medications Current Medications Generic Name Dose Route Start Last Admin Trade Name Freq PRN Reason Stop Dose Admin Acetaminophen 650 mg 10/30/20 17:29 Acetaminophen 325 Mg Tablet PO Q6H PRN Headache/Pain Mild Scale (1-3) Al Hydroxide/Mg Hydroxide 30 ml 10/30/20 17:29 Magnesium Hydrox/Alum Hydrox 30 Ml Oral.Susp PO Q6H PRN Heartburn/Nausea Clonazepam 0.5 mg 10/27/20 09:15 11/01/20 09:12 Clonazepam 0.5 Mg Tablet PO 0.5 mg BID CLAUDY Administration Duloxetine HCl 90 mg 10/28/20 09:00 11/01/20 09:12 Duloxetine Hcl 30 Mg Capsule.Dr PO 90 mg DAILY CLAUDY Administration Losartan Potassium 50 mg 10/30/20 09:00 11/01/20 09:12 Losartan Potassium 50 Mg Tablet PO 50 mg DAILY CLAUDY Administration Protocol Magnesium Hydroxide 30 ml 10/30/20 17:29 Milk Of Magnesia 30 Ml Oral.Susp PO DAILY PRN Constipation Olanzapine 5 mg 10/31/20 21:00 11/01/20 09:12 Olanzapine 5 Mg Tablet PO 5 mg BID CLAUDY Administration Olanzapine 5 mg 10/31/20 14:24 Olanzapine 5 Mg Tablet PO Q6H PRN Psychosis/agitation Omeprazole 40 mg 10/30/20 09:00 11/01/20 09:12 Omeprazole 40 Mg Capsule.Dr PO 40 mg DAILY CLAUDY Administration Trazodone HCl 50 mg 10/30/20 17:29 Trazodone Hcl 50 Mg Tablet PO BEDTIME PRN Insomnia Allergies Allergies Allergy/AdvReac Type Severity Reaction Status Date / Time No Known Allergies Allergy Verified 10/26/20 16:25 Assessment & Plan Assessment & Plan (1) MDD (major depressive disorder), recurrent, severe, with psychosis: Status: Acute Code(s): F33.3 - Major depressive disorder, recurrent, severe with psychotic symptoms Assessment and Plan: continue cymbalta continue olanzapine to 5mg po BID. continue clonazepam Greater than 50% of the session was spent on counseling and/or coordination of care Reason for contiued inpatient stay Substantial Risk for: inability to function
[2020-11-01 18:00] VITALS: BP 154/89; PULSE 100; TEMP 36.6
[2020-11-02 06:30] VITALS: BP 136/77; PULSE 88; RESP 16; TEMP 36.6; O2SAT 97
[2020-11-02] MEDS: Omeprazole 40 MG CAPSULE.DR PO (08:27)
[2020-11-02] MEDS: clonazePAM 0.5 MG TABLET PO ×2 (08:28→21:14)
[2020-11-02] MEDS: OLANZapine 5 MG TABLET PO ×2 (08:28→21:14)
[2020-11-02] MEDS: DULoxetine HCl 30 MG CAPSULE.DR 90 MG PO (08:28)
[2020-11-02 08:40] VITALS: BP 172/99; PULSE 88
[2020-11-02] MEDS: Losartan Potassium 50 MG TABLET PO (08:40)
--- NOTE | 2020-11-02 12:57 | HO.PSYCHPN ---
Subjective Subjective Date of Service: 11/02/20 Reason For Visit: Severe depression Interim History: Pt reports feeling less depressed. He reports he feels more rested in the morning and sleeping through the night. Pt reports he thinks he was too overwhelmed and anxious with multiple stressors including financial, problems with who does not want her adult daughter from other marriage to visit. He denies SI/HI. He was encouraged to attend groups. He has been mostly in his room. He continues to present with flat affect, although talking more. He does not appear with psychotic features at this time. Review of Systems Review of Systems Constitutional: No Weight loss, No Fever, No Chills, No Night Sweats, No Fatigue, No Malaise ENT/Mouth: No Hearing loss, No Ear Pain, No Nasal Congestion, No Sinus Pain, No Hoarseness, No sore throat, No Rhinorrhea, No Swallowing Difficulty Eyes: No Eye Pain, No Swelling, No Redness, No Foreign Body, No Discharge, No Vision Changes Cardiovascular: No Chest Pain, No SOB, No Dyspnea on Exertion, No Orthopnea, No Edema, No Palpitations Respiratory: No Cough, No Sputum, No Wheezing, No Smoke Exposure, No Dyspnea Gastrointestinal: No Nausea, No Vomiting, No Diarrhea, No Constipation, No abdominal Pain, No Hematochezia, No Melena Genitourinary: No Dysuria, No Urinary Frequency, No Hematuria, No Urinary Incontinence, No Urgency, No Flank Pain, No Urinary Flow Changes, No Hesitancy Musculoskeletal: No joint pain, No Myalgias, No Joint Swelling Skin: No Skin Lesions, No rash Neuro: No Weakness, No Numbness, No Paresthesias, No Loss of Consciousness, No Dizziness, No Headache Psych: No Anxiety/Panic, positive Depression, No SI/HI/AH/VH, No Social Issues Heme/Lymph: No Bruising, No Bleeding,No Lymphadenopathy Endocrine: No Polyuria, No Polydipsia, No Temperature Intolerance Yes all other systems are reviewed and are negative Gastrointestinal: Reports other (hx reflux) Mental Status Exam Mental Status Exam Narrative: Appearance: wearing hospital gown, poor hygiene, in NAD Behavior: calm, cooperative Psychomotor: retardation noted Speech: clear, slowed rate/rhythm/volume, minimally spontaneous TP: linear TC: no signs of psychosis, feeling tired Mood: tired Affect:constricted SI:denies HI:denies AH/VH:denies Delusions:no overt delusional content reported Insight/judgment:poor x 2. Memory/cog: alert, impaired secondary to psych symptoms. Diagnostics Vital Signs (24Hr): Vital Signs - 24 hr 11/01/20 18:00 11/02/20 06:30 11/02/20 08:40 Temperature 97.8 F 97.8 F Pulse Rate 100 88 88 Respiratory Rate 16 Blood Pressure 154/89 H 136/77 172/99 H Pulse Oximetry 97 Body Mass Index 28.5 Labs Results: 10/26/20 17:55 10/26/20 17:55 Imaging Radiology Impressions: ITS Impressions Head CT 10/27/20 00:30 IMPRESSION: No acute intracranial pathology. Medications Medications Current Medications Generic Name Dose Route Start Last Admin Trade Name Freq PRN Reason Stop Dose Admin Acetaminophen 650 mg 10/30/20 17:29 Acetaminophen 325 Mg Tablet PO Q6H PRN Headache/Pain Mild Scale (1-3) Al Hydroxide/Mg Hydroxide 30 ml 10/30/20 17:29 Magnesium Hydrox/Alum Hydrox 30 Ml Oral.Susp PO Q6H PRN Heartburn/Nausea Clonazepam 0.5 mg 10/27/20 09:15 11/02/20 08:28 Clonazepam 0.5 Mg Tablet PO 0.5 mg BID CLAUDY Administration Duloxetine HCl 90 mg 10/28/20 09:00 11/02/20 08:28 Duloxetine Hcl 30 Mg Capsule. PO 90 mg DAILY CLAUDY Administration Losartan Potassium 50 mg 10/30/20 09:00 11/02/20 08:40 Losartan Potassium 50 Mg Tablet PO 50 mg DAILY CLAUDY Administration Protocol Magnesium Hydroxide 30 ml 10/30/20 17:29 Milk Of Magnesia 30 Ml Oral.Susp PO DAILY PRN Constipation Olanzapine 5 mg 10/31/20 21:00 11/02/20 08:28 Olanzapine 5 Mg Tablet PO 5 mg BID CLAUDY Administration Olanzapine 5 mg 10/31/20 14:24 Olanzapine 5 Mg Tablet PO Q6H PRN Psychosis/agitation Omeprazole 40 mg 10/30/20 09:00 11/02/20 08:27 Omeprazole 40 Mg Capsule. PO 40 mg DAILY CLAUDY Administration Trazodone HCl 50 mg 10/30/20 17:29 Trazodone Hcl 50 Mg Tablet PO BEDTIME PRN Insomnia Allergies Allergies Allergy/AdvReac Type Severity Reaction Status Date / Time No Known Allergies Allergy Verified 10/26/20 16:25 Assessment & Plan Assessment & Plan (1) MDD (major depressive disorder), recurrent, severe, with psychosis: Status: Acute Code(s): F33.3 - Major depressive disorder, recurrent, severe with psychotic symptoms Assessment and Plan: continue cymbalta continue olanzapine to 5mg po BID. continue clonazepam Greater than 50% of the session was spent on counseling and/or coordination of care Reason for contiued inpatient stay Substantial Risk for: harm to self and inability to function
[2020-11-02 18:00] VITALS: BP 157/96; PULSE 84; RESP 18; TEMP 36.3; O2SAT 98
[2020-11-03 06:00] VITALS: BP 130/81; PULSE 94; RESP 18; TEMP 36.2; O2SAT 96
[2020-11-03 08:20] VITALS: BP 157/101; PULSE 103
[2020-11-03] MEDS: Omeprazole 40 MG CAPSULE.DR PO (08:20)
[2020-11-03] MEDS: Losartan Potassium 50 MG TABLET PO (08:20)
[2020-11-03] MEDS: OLANZapine 5 MG TABLET PO ×2 (08:20→20:54)
[2020-11-03] MEDS: clonazePAM 0.5 MG TABLET PO ×2 (08:20→20:53)
[2020-11-03] MEDS: DULoxetine HCl 30 MG CAPSULE.DR 90 MG PO (08:20)
--- NOTE | 2020-11-03 10:27 | P.PNPSI_ITS ---
Subjective Subjective Date of Service: 11/03/20 Reason For Visit: Severe depression Subjective Notes: Conditional Voluntary Interim History: pt continues to be depressed, sad, soft spoken, staying in room most of morning Medication Compliance: Yes Side effects from medications: No Attending Groups: No Review of Systems Review of Systems Constitutional: No Weight loss, No Fever, No Chills, No Night Sweats, No Fatigue , No Malaise ENT/Mouth: No Hearing loss, No Ear Pain, No Nasal Congestion, No Sinus Pain, No Hoarseness, No sore throat, No Rhinorrhea, No Swallowing Difficulty Eyes: No Eye Pain, No Swelling, No Redness, No Foreign Body, No Discharge, No Vision Changes Cardiovascular: No Chest Pain, No SOB, No Dyspnea on Exertion, No Orthopnea, No Edema, No Palpitations Respiratory: No Cough, No Sputum, No Wheezing, No Smoke Exposure, No Dyspnea Gastrointestinal: No Nausea, No Vomiting, No Diarrhea, No Constipation, No abdominal Pain, No Hematochezia, No Melena Genitourinary: No Dysuria, No Urinary Frequency, No Hematuria, No Urinary Incontinence, No Urgency, No Flank Pain, No Urinary Flow Changes, No Hesitancy Musculoskeletal: No joint pain, No Myalgias, No Joint Swelling Skin: No Skin Lesions, No rash Neuro: No Weakness, No Numbness, No Paresthesias, No Loss of Consciousness, No Dizziness, No Headache Psych: No Anxiety/Panic, positive Depression, No SI/HI/AH/VH, No Social Issues Heme/Lymph: No Bruising, No Bleeding,No Lymphadenopathy Endocrine: No Polyuria, No Polydipsia, No Temperature Intolerance Yes all other systems are reviewed and are negative Gastrointestinal: Reports other (hx reflux) Mental Status Exam Mental Status Exam Narrative: Appearance: poor hygiene, no acute distress Psychomotor: retardation noted Speech: clear, slowed rate/rhythm/volume, minimally spontaneous TP: linear TC: no signs of psychosis, feeling tired Mood: tired Affect:constricted SI:denies HI:denies AH/VH:denies Delusions:no overt delusional content reported Insight/judgment:poor x 2. Memory/cog: alert, impaired secondary to psych symptoms. Patient Appearance: Appropriate Patient Orientation: Person and Place Level of Consciousness: Awake and Alert Patient Behavior: Appropriate, Anxious and Good Eye Contact Mood Description: Anxious Affect Description: Anxious Patient Cognition Impaired: Yes Ability to Follow Directions: Fair Speech Pattern: Impoverished, Difficulty Finding Words, Spontaneous Speech, Soft-Spoken, Delayed, Poor Articulation and Long Pauses Memory Description: Intact Diagnostics Vital Signs (24Hr): Vital Signs - 24 hr 11/02/20 18:00 11/03/20 06:00 11/03/20 08:20 Temperature 97.3 F 97.2 F Pulse Rate 84 94 103 H Respiratory Rate 18 18 Blood Pressure 157/96 H 130/81 157/101 H Pulse Oximetry 98 96 Body Mass Index 28.5 Labs Results: 10/26/20 17:55 10/26/20 17:55 Imaging Radiology Impressions: [facility] Impressions Head CT 10/27/20 00:30 IMPRESSION: No acute intracranial pathology. Medications Medications Current Medications Generic Name Dose Route Start Last Admin Trade Name Freq PRN Reason Stop Dose Admin Acetaminophen 650 mg 10/30/20 17:29 Acetaminophen 325 Mg Tablet PO Q6H PRN Headache/Pain Mild Scale (1-3) Al Hydroxide/Mg Hydroxide 30 ml 10/30/20 17:29 Magnesium Hydrox/Alum Hydrox 30 Ml Oral.Susp PO Q6H PRN Heartburn/Nausea Clonazepam 0.5 mg 10/27/20 09:15 11/03/20 08:20 Clonazepam 0.5 Mg Tablet PO 0.5 mg BID CLAUDY Administration Duloxetine HCl 90 mg 10/28/20 09:00 11/03/20 08:20 Duloxetine Hcl 30 Mg Capsule. PO 90 mg DAILY CLAUDY Administration Losartan Potassium 50 mg 10/30/20 09:00 11/03/20 08:20 Losartan Potassium 50 Mg Tablet PO 50 mg DAILY CLAUDY Administration Protocol Magnesium Hydroxide 30 ml 10/30/20 17:29 Milk Of Magnesia 30 Ml Oral.Susp PO DAILY PRN Constipation Olanzapine 5 mg 10/31/20 21:00 11/03/20 08:20 Olanzapine 5 Mg Tablet PO 5 mg BID CLAUDY Administration Olanzapine 5 mg 10/31/20 14:24 Olanzapine 5 Mg Tablet PO Q6H PRN Psychosis/agitation Omeprazole 40 mg 10/30/20 09:00 11/03/20 08:20 Omeprazole 40 Mg Capsule. PO 40 mg DAILY CLAUDY Administration Trazodone HCl 50 mg 10/30/20 17:29 Trazodone Hcl 50 Mg Tablet PO BEDTIME PRN Insomnia Allergies Allergies Allergy/AdvReac Type Severity Reaction Status Date / Time No Known Allergies Allergy Verified 10/26/20 16:25 Assessment & Plan Assessment & Plan (1) MDD (major depressive disorder), recurrent, severe, with psychosis: Status: Acute Code(s): F33.3 - Major depressive disorder, recurrent, severe with psychotic symptoms Assessment and Plan: continue cymbalta continue olanzapine to 5mg po BID. continue clonazepam Greater than 50% of the session was spent on counseling and/or coordination of care Reason for contiued inpatient stay Substantial Risk for: harm to self, inability to function and med/psych decompensation
[2020-11-03 17:13] VITALS: BP 136/78; PULSE 97; RESP 16; TEMP 36.2; O2SAT 99
[2020-11-03 18:00] VITALS: BP 136/78; PULSE 97; RESP 18; TEMP 36.2; O2SAT 99
[2020-11-04 06:00] VITALS: BP 122/88; PULSE 95; TEMP 36.6; O2SAT 97
[2020-11-04] MEDS: OLANZapine 5 MG TABLET PO ×2 (08:21→20:58)
[2020-11-04] MEDS: DULoxetine HCl 30 MG CAPSULE.DR 90 MG PO (08:21)
[2020-11-04] MEDS: clonazePAM 0.5 MG TABLET PO ×2 (08:21→20:58)
[2020-11-04] MEDS: Omeprazole 40 MG CAPSULE.DR PO (08:21)
[2020-11-04 08:24] VITALS: BP 164/90; PULSE 86
[2020-11-04] MEDS: Losartan Potassium 50 MG TABLET PO (08:24)
[2020-11-04 08:45] VITALS: BP 164/90; PULSE 86; RESP 16
--- NOTE | 2020-11-04 16:18 | P.PNPSI_ITS ---
Subjective Subjective Date of Service: 11/04/20 Reason For Visit: Severe depression Interim History: pt continues to present with sad, depressed mood, he declines to talk about emotions or what brought him to hospital. soft spoken, staying in room most of morning Review of Systems Review of Systems Constitutional: No Weight loss, No Fever, No Chills, No Night Sweats, No Fatigue, No Malaise ENT/Mouth: No Hearing loss, No Ear Pain, No Nasal Congestion, No Sinus Pain, No Hoarseness, No sore throat, No Rhinorrhea, No Swallowing Difficulty Eyes: No Eye Pain, No Swelling, No Redness, No Foreign Body, No Discharge, No Vision Changes Cardiovascular: BP high, No Chest Pain, No SOB, No Dyspnea on Exertion, No Ort hopnea, No Edema, No Palpitations Respiratory: No Cough, No Sputum, No Wheezing, No Smoke Exposure, No Dyspnea Gastrointestinal: No Nausea, No Vomiting, No Diarrhea, No Constipation, No abdominal Pain, No Hematochezia, No Melena Genitourinary: No Dysuria, No Urinary Frequency, No Hematuria, No Urinary Incontinence, No Urgency, No Flank Pain, No Urinary Flow Changes, No Hesitancy Musculoskeletal: No joint pain, No Myalgias, No Joint Swelling Skin: No Skin Lesions, No rash Neuro: No Weakness, No Numbness, No Paresthesias, No Loss of Consciousness, No Dizziness, No Headache Psych: No Anxiety/Panic, positive Depression, No SI/HI/AH/VH, No Social Issues Heme/Lymph: No Bruising, No Bleeding,No Lymphadenopathy Endocrine: No Polyuria, No Polydipsia, No Temperature Intolerance Yes all other systems are reviewed and are negative Cardiovascular: Reports as per HPI (BP elevated ) Gastrointestinal: Reports other (hx reflux) Mental Status Exam Mental Status Exam Narrative: Appearance: poor hygiene, no acute distress Psychomotor: retardation noted Speech: clear, slowed rate/rhythm/volume, minimally spontaneous TP: linear TC: no signs of psychosis, feeling tired Mood: tired Affect:constricted SI:denies HI:denies AH/VH:denies Delusions:no overt delusional content reported Insight/judgment:poor x 2. Memory/cog: alert, impaired secondary to psych symptoms. Patient Appearance: Appropriate Patient Orientation: Person and Place Level of Consciousness: Awake and Alert Patient Behavior: Appropriate, Anxious and Good Eye Contact Mood Description: Anxious Affect Description: Anxious Patient Cognition Impaired: Yes Ability to Follow Directions: Fair Speech Pattern: Impoverished, Difficulty Finding Words, Spontaneous Speech, Soft-Spoken, Delayed, Poor Articulation and Long Pauses Memory Description: Intact Depressive Symptoms: Diff. Making Decisions and Difficulty Concentrating Judgement: Fair Diagnostics Vital Signs (24Hr): Vital Signs - 24 hr 11/03/20 17:13 11/03/20 18:00 11/04/20 06:00 Temperature 97.2 F 97.2 F 98 F Pulse Rate 97 97 95 Respiratory Rate 16 18 Blood Pressure 136/78 136/78 122/88 Pulse Oximetry 99 99 97 11/04/20 08:24 11/04/20 08:45 Temperature Pulse Rate 86 86 Respiratory Rate 16 Blood Pressure 164/90 H 164/90 H Pulse Oximetry Body Mass Index 28.5 Labs Results: 10/26/20 17:55 10/26/20 17:55 Imaging Radiology Impressions: [facility] Impressions Head CT 10/27/20 00:30 IMPRESSION: No acute intracranial pathology. Medications Medications Current Medications Generic Name Dose Route Start Last Admin Trade Name Freq PRN Reason Stop Dose Admin Acetaminophen 650 mg 10/30/20 17:29 Acetaminophen 325 Mg Tablet PO Q6H PRN Headache/Pain Mild Scale (1-3) Al Hydroxide/Mg Hydroxide 30 ml 10/30/20 17:29 Magnesium Hydrox/Alum Hydrox 30 Ml Oral.Susp PO Q6H PRN Heartburn/Nausea Clonazepam 0.5 mg 10/27/20 09:15 11/04/20 08:21 Clonazepam 0.5 Mg Tablet PO 0.5 mg BID CLAUDY Administration Duloxetine HCl 90 mg 10/28/20 09:00 11/04/20 08:21 Duloxetine Hcl 30 Mg Capsule.Dr PO 90 mg DAILY CLAUDY Administration Losartan Potassium 50 mg 10/30/20 09:00 11/04/20 08:24 Losartan Potassium 50 Mg Tablet PO 50 mg DAILY CLAUDY Administration Protocol Magnesium Hydroxide 30 ml 10/30/20 17:29 Milk Of Magnesia 30 Ml Oral.Susp PO DAILY PRN Constipation Olanzapine 5 mg 10/31/20 21:00 11/04/20 08:21 Olanzapine 5 Mg Tablet PO 5 mg BID CLAUDY Administration Olanzapine 5 mg 10/31/20 14:24 Olanzapine 5 Mg Tablet PO Q6H PRN Psychosis/agitation Omeprazole 40 mg 10/30/20 09:00 11/04/20 08:21 Omeprazole 40 Mg Capsule. PO 40 mg DAILY CLAUDY Administration Trazodone HCl 50 mg 10/30/20 17:29 Trazodone Hcl 50 Mg Tablet PO BEDTIME PRN Insomnia Allergies Allergies Allergy/AdvReac Type Severity Reaction Status Date / Time No Known Allergies Allergy Verified 10/26/20 16:25 Assessment & Plan Assessment & Plan (1) MDD (major depressive disorder), recurrent, severe, with psychosis: Status: Acute Code(s): F33.3 - Major depressive disorder, recurrent, severe with psychotic symptoms Assessment and Plan: Continue current treatment plan continue cymbalta continue olanzapine to 5mg po BID. continue clonazepam Greater than 50% of the session was spent on counseling and/or coordination of c are Reason for contiued inpatient stay Substantial Risk for: inability to function and med/psych decompensation
[2020-11-04 16:39] VITALS: BP 152/88; PULSE 94; RESP 18; TEMP 36.6; O2SAT 98
[2020-11-05 06:05] VITALS: BP 141/85; PULSE 86; RESP 16; TEMP 36.2; O2SAT 94
[2020-11-05] MEDS: clonazePAM 0.5 MG TABLET PO ×2 (08:26→21:04)
[2020-11-05 08:27] VITALS: BP 141/85; PULSE 86
[2020-11-05] MEDS: DULoxetine HCl 30 MG CAPSULE.DR 90 MG PO (08:27)
[2020-11-05] MEDS: Losartan Potassium 50 MG TABLET PO (08:27)
[2020-11-05] MEDS: OLANZapine 5 MG TABLET PO ×2 (08:28→21:04)
[2020-11-05] MEDS: Omeprazole 40 MG CAPSULE.DR PO (08:28)
[2020-11-05 08:37] VITALS: BP 182/104; PULSE 88; RESP 16; TEMP -14; TEMP 6.8; O2SAT 99
--- NOTE | 2020-11-05 15:01 | P.PNPSI_ITS ---
Subjective Subjective Date of Service: 11/06/20 Reason For Visit: Severe depression Interim History: Pt reports decreased symptoms of depression in that he states he is less anxious and less overwhelmed by psychosocial stressors mainly problems with , financial. He reports sleeping and eating well. He is not very talkative, especially when trying to explain events leading to this adm ission. He denies SI/HI. He has been mostly in his room, encouraged to attend groups. Review of Systems Review of Systems Constitutional: No Weight loss, No Fever, No Chills, No Night Sweats, No Fatigue, No Malaise ENT/Mouth: No Hearing loss, No Ear Pain, No Nasal Congestion, No Sinus Pain, No Hoarseness, No sore throat, No Rhinorrhea, No Swallowing Difficulty Eyes: No Eye Pain, No Swelling, No Redness, No Foreign Body, No Discharge, No Vision Changes Cardiovascular: BP high, No Chest Pain, No SOB, No Dyspnea on Exertion, No Orthopnea, No Edema, No Palpitations Respiratory: No Cough, No Sputum, No Wheezing, No Smoke Exposure, No Dyspnea Gastrointestinal: No Nausea, No Vomiting, No Diarrhea, No Constipation, No a bdominal Pain, No Hematochezia, No Melena Genitourinary: No Dysuria, No Urinary Frequency, No Hematuria, No Urinary Incontinence, No Urgency, No Flank Pain, No Urinary Flow Changes, No Hesitancy Musculoskeletal: No joint pain, No Myalgias, No Joint Swelling Skin: No Skin Lesions, No rash Neuro: No Weakness, No Numbness, No Paresthesias, No Loss of Consciousness, No Dizziness, No Headache Psych: No Anxiety/Panic, positive Depression, No SI/HI/AH/VH, No Social Issues Heme/Lymph: No Bruising, No Bleeding,No Lymphadenopathy Endocrine: No Polyuria, No Polydipsia, No Temperature Intolerance Yes all other systems are reviewed and are negative Cardiovascular: Reports as per HPI (BP elevated ) Gastrointestinal: Reports other (hx reflux) Mental Status Exam Mental Status Exam Narrative: Appearance: poor hygiene, no acute distress Psychomotor: retardation noted Speech: clear, slowed rate/rhythm/volume, minimally spontaneous TP: linear TC: no signs of psychosis, feeling tired Mood: tired Affect:constricted SI:denies HI:denies AH/VH:denies Delusions:no overt delusional content reported Insight/judgment:poor x 2. Memory/cog: alert, impaired secondary to psych symptoms. Diagnostics Vital Signs (24Hr): Vital Signs - 24 hr 11/05/20 18:00 11/06/20 06:10 11/06/20 08:37 Temperature 97.4 F 97.4 F Pulse Rate 91 86 78 Respiratory Rate 18 16 Blood Pressure 143/84 H 134/71 133/84 Pulse Oximetry 99 97 Body Mass Index 28.5 Labs Results: 10/26/20 17:55 10/26/20 17:55 Imaging Radiology Impressions: ITS Impressions Head CT 10/27/20 00:30 IMPRESSION: No acute intracranial pathology. Medications Medications Current Medications Generic Name Dose Route Start Last Admin Trade Name Freq PRN Reason Stop Dose Admin Acetaminophen 650 mg 10/30/20 17:29 Acetaminophen 325 Mg Tablet PO Q6H PRN Headache/Pain Mild Scale (1-3) Al Hydroxide/Mg Hydroxide 30 ml 10/30/20 17:29 Magnesium Hydrox/Alum Hydrox 30 Ml Oral.Susp PO Q6H PRN Heartburn/Nausea Clonazepam 0.5 mg 10/27/20 09:15 11/06/20 08:36 Clonazepam 0.5 Mg Tablet PO 0.5 mg BID CLAUDY Administration Duloxetine HCl 90 mg 10/28/20 09:00 11/06/20 08:37 Duloxetine Hcl 30 Mg Capsule. PO 90 mg DAILY CLAUDY Administration Losartan Potassium 50 mg 10/30/20 09:00 11/06/20 08:37 Losartan Potassium 50 Mg Tablet PO 50 mg DAILY CLAUDY Administration Protocol Magnesium Hydroxide 30 ml 10/30/20 17:29 Milk Of Magnesia 30 Ml Oral.Susp PO DAILY PRN Constipation Olanzapine 5 mg 10/31/20 21:00 11/06/20 08:59 Olanzapine 5 Mg Tablet PO 5 mg BID CLAUDY Administration Olanzapine 5 mg 10/31/20 14:24 Olanzapine 5 Mg Tablet PO Q6H PRN Psychosis/agitation Omeprazole 40 mg 10/30/20 09:00 11/06/20 08:37 Omeprazole 40 Mg Capsule. PO 40 mg DAILY CLAUDY Administration Trazodone HCl 50 mg 10/30/20 17:29 Trazodone Hcl 50 Mg Tablet PO BEDTIME PRN Insomnia Allergies Allergies Allergy/AdvReac Type Severity Reaction Status Date / Time No Known Allergies Allergy Verified 10/26/20 16:25 Assessment & Plan Assessment & Plan (1) MDD (major depressive disorder), recurrent, severe, with psychosis: Status: Acute Code(s): F33.3 - Major depressive disorder, recurrent, severe with psychotic symptoms Assessment and Plan: Continue current treatment plan continue cymbalta continue olanzapine to 5mg po BID. continue clonazepam Greater than 50% of the session was spent on counseling and/or coordination of care Reason for contiued inpatient stay Substantial Risk for: harm to self
[2020-11-05 18:00] VITALS: BP 143/84; PULSE 91; RESP 18; TEMP 36.3; O2SAT 99
[2020-11-06 06:10] VITALS: BP 134/71; PULSE 86; RESP 16; TEMP 36.3; O2SAT 97
[2020-11-06] MEDS: clonazePAM 0.5 MG TABLET PO ×2 (08:36→20:47)
[2020-11-06 08:37] VITALS: BP 133/84; PULSE 78
[2020-11-06] MEDS: Omeprazole 40 MG CAPSULE.DR PO (08:37)
[2020-11-06] MEDS: DULoxetine HCl 30 MG CAPSULE.DR 90 MG PO (08:37)
[2020-11-06] MEDS: Losartan Potassium 50 MG TABLET PO (08:37)
[2020-11-06] MEDS: OLANZapine 5 MG TABLET PO ×2 (08:59→20:47)
--- NOTE | 2020-11-06 15:03 | P.PNPSI_ITS ---
Subjective Subjective Date of Service: 11/06/20 Reason For Visit: Severe depression Interim History: Pt presents with brighter affect. He reports mood is good. He reports feeling more rested in the morning and sleeping through the night. He reports appetite has improved as well. He denies SI/HI. He continues to be in his room but encourage to attend assigned groups. Review of Systems Review of Systems Constitutional: No Weight loss, No Fever, No Chills, No Night Sweats, No Fatigue, No Malaise ENT/Mouth: No Hearing loss, No Ear Pain, No Nasal Congestion, No Sinus Pain, No Hoarseness, No sore throat, No Rhinorrhea, No Swallowing Difficulty Eyes: No Eye Pain, No Swelling, No Redness, No Foreign Body, No Discharge, No Vision Changes Cardiovascular: BP high, No Chest Pain, No SOB, No Dyspnea on Exertion, No Orthopnea, No Edema, No Palpitations Respiratory: No Cough, No Sputum, No Wheezing, No Smoke Exposure, No Dyspnea Gastrointestinal: No Nausea, No Vomiting, No Diarrhea, No Constipation, No abdom inal Pain, No Hematochezia, No Melena Genitourinary: No Dysuria, No Urinary Frequency, No Hematuria, No Urinary Incontinence, No Urgency, No Flank Pain, No Urinary Flow Changes, No Hesitancy Musculoskeletal: No joint pain, No Myalgias, No Joint Swelling Skin: No Skin Lesions, No rash Neuro: No Weakness, No Numbness, No Paresthesias, No Loss of Consciousness, No Dizziness, No Headache Psych: No Anxiety/Panic, positive Depression, No SI/HI/AH/VH, No Social Issues Heme/Lymph: No Bruising, No Bleeding,No Lymphadenopathy Endocrine: No Polyuria, No Polydipsia, No Temperature Intolerance Yes all other systems are reviewed and are negative Cardiovascular: Reports as per HPI (BP elevated ) Gastrointestinal: Reports other (hx reflux) Mental Status Exam Mental Status Exam Narrative: Appearance: casually groomed, good hygiene in NAD Psychomotor:no agitation or retardation noted Speech: clear, rate/rhythm/volume, spontaneous TP: linear TC: no signs of psychosis, looking forward to return home Mood: better Affect:brighter SI:denies HI:denies AH/VH:denies Delusions:none Insight/judgment:fair x 2. Memory/cog: alert, oriented x 3. grossly intact to conversational testing. Diagnostics Vital Signs (24Hr): Vital Signs - 24 hr 11/05/20 18:00 11/06/20 06:10 11/06/20 08:37 Temperature 97.4 F 97.4 F Pulse Rate 91 86 78 Respiratory Rate 18 16 Blood Pressure 143/84 H 134/71 133/84 Pulse Oximetry 99 97 Body Mass Index 28.5 Labs Results: 10/26/20 17:55 10/26/20 17:55 Imaging Radiology Impressions: ITS Impressions Head CT 10/27/20 00:30 IMPRESSION: No acute intracranial pathology. Medications Medications Current Medications Generic Name Dose Route Start Last Admin Trade Name Freq PRN Reason Stop Dose Admin Acetaminophen 650 mg 10/30/20 17:29 Acetaminophen 325 Mg Tablet PO Q6H PRN Headache/Pain Mild Scale (1-3) Al Hydroxide/Mg Hydroxide 30 ml 10/30/20 17:29 Magnesium Hydrox/Alum Hydrox 30 Ml Oral.Susp PO Q6H PRN Heartburn/Nausea Clonazepam 0.5 mg 10/27/20 09:15 11/06/20 08:36 Clonazepam 0.5 Mg Tablet PO 0.5 mg BID CLAUDY Administration Duloxetine HCl 90 mg 10/28/20 09:00 11/06/20 08:37 Duloxetine Hcl 30 Mg Capsule. PO 90 mg DAILY CLAUDY Administration Losartan Potassium 50 mg 10/30/20 09:00 11/06/20 08:37 Losartan Potassium 50 Mg Tablet PO 50 mg DAILY CLAUDY Administration Protocol Magnesium Hydroxide 30 ml 10/30/20 17:29 Milk Of Magnesia 30 Ml Oral.Susp PO DAILY PRN Constipation Olanzapine 5 mg 10/31/20 21:00 11/06/20 08:59 Olanzapine 5 Mg Tablet PO 5 mg BID CLAUDY Administration Olanzapine 5 mg 10/31/20 14:24 Olanzapine 5 Mg Tablet PO Q6H PRN Psychosis/agitation Omeprazole 40 mg 10/30/20 09:00 11/06/20 08:37 Omeprazole 40 Mg Capsule. PO 40 mg DAILY CLAUDY Administration Trazodone HCl 50 mg 10/30/20 17:29 Trazodone Hcl 50 Mg Tablet PO BEDTIME PRN Insomnia Allergies Allergies Allergy/AdvReac Type Severity Reaction Status Date / Time No Known Allergies Allergy Verified 10/26/20 16:25 Assessment & Plan Assessment & Plan (1) MDD (major depressive disorder), recurrent, severe, with psychosis: Status: Acute Code(s): F33.3 - Major depressive disorder, recurrent, severe with psychotic symptoms Assessment and Plan: Continue current treatment plan continue cymbalta continue olanzapine to 5mg po BID. continue clonazepam Greater than 50% of the session was spent on counseling and/or coordination of care Reason for contiued inpatient stay Substantial Risk for: stable for discharge
[2020-11-06 18:50] VITALS: BP 142/76; PULSE 97; TEMP 36.6
[2020-11-07 05:55] VITALS: BP 123/65; PULSE 82; RESP 18; TEMP 36.2; O2SAT 94
[2020-11-07] MEDS: DULoxetine HCl 30 MG CAPSULE.DR 90 MG PO (08:22)
[2020-11-07] MEDS: Omeprazole 40 MG CAPSULE.DR PO (08:22)
[2020-11-07] MEDS: clonazePAM 0.5 MG TABLET PO (08:22)
[2020-11-07] MEDS: OLANZapine 5 MG TABLET PO (08:22)
[2020-11-07 08:23] VITALS: BP 139/84; PULSE 93
[2020-11-07] MEDS: Losartan Potassium 50 MG TABLET PO (08:23)
--- NOTE | 2020-11-07 13:47 | PM.PSYDC ---
DS: Providers Provider Date of Service: 11/20/20 Date of admission: 10/30/20 17:29 Primary care physician: Roshan Baxter MD DS: Diagnosis Discharge Diagnosis (1) MDD (major depressive disorder), recurrent, severe, with psychosis: Status: Acute DS: Medications Discharge Medications Home Medications: Home Medications Medication Instructions Recorded Confirmed pantoprazole 1 tab PO DAILY 10/26/20 10/26/20 Previous Rx's Medication Instructions Recorded clonazepam 0.5 mg PO BID 30 Days #60 tab 11/07/20 duloxetine 90 mg PO DAILY 30 Days #90 cap 11/07/20 losartan 50 mg PO DAILY 30 Days #30 tab 11/07/20 olanzapine 5 mg PO BID 30 Days #60 tab 11/07/20 Discharge Plan Discharge Patient Disposition: Home, Self-Care Discharge Diagnosis: mdd with psychosis Referrals: Therapist: Felicia Fields ([facility]) [Other] - 11/08/20 3:00 pm Psych Prescriber: Yanira Dubose ([facility]) [Other] - 11/14/20 11:00 am Psych Prescriber: Yanira Dubose ([facility]) [Other] - 12/11/20 3:00 pm Roshan Baxter MD [Primary Care Provider] - Discharge Medications: New losartan 50 mg Tablet 50 mg PO DAILY 30 Days Qty: 30 RF: 0 clonazepam 0.5 mg Tablet 0.5 mg PO BID 30 Days Qty: 60 RF: 0 olanzapine 5 mg Tablet 5 mg PO BID 30 Days Qty: 60 RF: 0 duloxetine 30 mg Capsule,Delayed Release(Dr/Ec) 90 mg PO DAILY 30 Days Qty: 90 RF: 0 Continued pantoprazole 40 mg tablet,delayed release (DR/EC) 1 tab PO DAILY RF: 0 Discontinued losartan 100 mg tablet 1 tab PO DAILY RF: 0 Cymbalta 60 mg PO DAILY RF: 0 clonazepam 0.5 mg tablet 1 tab PO BID RF: 0 Discharge Orders: Discharge Order (Routine); Ordered 11/07/20 Ordered By: Georgette Regan Diet: regular diet Activity on Discharge: As tolerated Stand Alone Forms: Patient Portal Discharge page Care Plan Goals: continue OP psychiatric treatment. Health Concerns: follow up with PCP No pending results. Plan of Treatment: 1. continue medications as prescribed 2. follow up with referrals 3. Call 911 or go to nearest ED in case of emergency Assessment: Stable Discharge Date/Time: 11/07/20 14:25 Mental Status Exam Mental Status Exam Narrative: Appearance: casually groomed, fair hygiene, in NAD Behavior: calm, cooperative Psychomotor: no agitation or retardation noted Speech: clear, normal rate/rhythm/volume, spontaneous TP: linear TC: no signs of psychosis, looking forward to return home see his and daughter Mood: better Affect:brighter, non labile SI:none HI:none AH/VH:none Delusions:none Insight/judgment:fair x 2. Memory/cog: alert, oriented x 3. grossly intact to conversational testing. Data Imaging Diagnostic Imaging Impressions Head CT 10/27/20 00:30 IMPRESSION: No acute intracranial pathology. DS: Summary Hospital Course Hospital Course: Mr. Oneal is a 54 year-old male with hx of MDD. No prior inpatient psychiatric admission. Per crisis report, pt was brought to [facility] ED on 10/28/2020 by and sister as pt has been presenting as withdrawn, minimally verbal, blank stare, not sleeping and stopped going to work 4 days ago. In the ED he was noted to be thought blocking, minimally interactive/verbal. He was started on low dose of Olanzapine in ED. His utox was negative. CT scan did not show acute pathology. On the unit, Mr. Oneal appears slightly more verbal. However, he is not able to provide much details about events leading to this admission. He reports he was not feeling well. When asked if physically or emotionally, he states both. When asked to elaborate, he does not provide much details. He denies VH/AH. He reports poor sleep. He describes mood as depressed. He denies SI/HI. He denies physical pain or unable to describe in what way he did not feel physically well. He does state that he has been feeling tired. Collateral information was gathered from the , who reports pt has been under a lot of stress at work including possibility of losing his job. also reports that they have significant financial stressors at this time. He does not think that he was hearing things that other couldn't hear or seeing things. She does report that he spend most of day staring at wall with limited verbalization. She reports he had poor appetite and poor sleep. She reports she has never seen him like this. Past Psychiatric History: No IP admissions Treated by his PCP for depression Suicide attempts: none Past trials: cymbalta and clonazepam HOSPITAL COURSE On the unit, Mr. Oneal was placed on 15 minutes checks and admitted on a CV. He initially presented as withdrawn, minimally interactive in conversation nor with staff nor peers. He endorsed depressed mood and feeling overwhelmed with multiple stressors including marital and financial. He also expressed feeling worried about demands at work. He did not show signs of catatonia or overt psychosis, but it appears that he much more talkative and responsive than when he first presented to [facility] when he was described as thought blocking, unable to provide any information. We discussed risks, benefits and alternative treatment options. Mr. Oneal agreed to continue Olanzapine and Cymbalta. He was treated for severe depression with psychotic features. His affect gradually brighten. He was more spontaneous in engaging in meaningful conversation about his treatment. He was more visible although he did not participate in assigned groups. He reported sleeping and eating better. Prior to admission, pt apparently had had several nights without sleep, mostly staring at chicas. He denied suicidal or homicidal ideation. He denied VH/AH. Collateral information was gathered from his and sister who reported pt appeared back to baseline. They both denied safety concerns at time of discharge. There were no incidences of disruptive behaviors nor use of restraints. Time spent discussing smoking cessation with patient: 3 to 10 minutes Status at Discharge Cognitive/behavioral status at discharge: Pt presents with brighter affect. He does not appear to be internally preoccupied. He denies SI/HI. No signs of aggression towards self or others. Time Spent with Patient Time attestation: Total time spent providing and/or coordinating discharge services:
== END 2020-11-07 14:25 | disposition home or self-care (01) | DRG 751 ==
LOC: HO.ED 10-27 11:56 → HO.PM5 10-30 17:36
PROVIDERS: Clinical Nurse Specialist Psychiatric/Mental Health, Adult; Nurse Practitioner Primary Care; Admitting Provider Clinical Nurse Specialist Psychiatric/Mental Health; Emergency Provider Emergency Medicine; PCP Internal Medicine; Visit Provider Social Worker
DX: F33.3 Major depressive disorder, recurrent, severe with psychotic symptoms (principal); Z20.822 Contact with and (suspected) exposure to COVID-19; Z79.899 Other long term (current) drug therapy
CPT/HCPCS: 36415; 70450; 80053; 80061; 80143; 80179; 80307; 80320; 83036; 84443; 85025; 87635; 99285; J2060